=== PATIENT | female | born 1935 | race Caucasian/White ===

== ENCOUNTER → 2019-04-24 09:24 | Outpatient (BNVA) | payer MEDICARE, OTHER, SELFPAY | PROVIDERS: Family Provider Nurse Practitioner; PCP Nurse Practitioner; Visit Provider Nurse Practitioner | DX: E78.5 Hyperlipidemia, unspecified (principal); I10 Essential (primary) hypertension; E03.8 Other specified hypothyroidism; E55.9 Vitamin D deficiency, unspecified | CPT/HCPCS: 80053; 80061; 82306; 84443; 85025 ==

== ENCOUNTER → 2019-10-12 08:40 | Outpatient (BNVA) | payer MEDICARE, OTHER, SELFPAY | PROVIDERS: Family Provider Nurse Practitioner; PCP Nurse Practitioner; Visit Provider Nurse Practitioner | DX: I10 Essential (primary) hypertension (principal); E03.8 Other specified hypothyroidism; E78.2 Mixed hyperlipidemia | CPT/HCPCS: 80053; 80061; 81000; 84443 ==

== ENCOUNTER 2019-11-27 10:21 | Outpatient (CLI) | payer MEDICARE, OTHER, SELFPAY ==
--- NOTE | 2019-11-27 10:27 | MM_ITS ---
WS: [id number] Bilateral screening digital mammogram, 11/27/2019 Clinical Data: SCREENING Comparison: 10/20/2018, 10/04/2017, 10/02/2016, 09/22/2015, 09/21/2014, 09/10/2013, 08/14/2012, 07/11/2011, 04/27/2010, 04/20/2009, 03/05/2008, 01/31/2007, 11/08/2005. Findings: The breast parenchymal pattern shows fibroglandular tissue. No spiculated masses or clustered calcifi cations are seen. There are no secondary signs of carcinoma. There is a benign calcification in the c entral portion of the left wrist. MM/[id number] Impression: 1. Negative bilateral mammogram unchanged. 2. Recommend annual screening mammograms. BIRADS: 1-Negative FOLLOW UP: 1 Year Follow-up The CAD time checker was used.
== END 2019-11-27 10:22 | disposition home or self-care (01) ==
LOC: RADSHAW 10:26
PROVIDERS: PCP Nurse Practitioner; Visit Provider Nurse Practitioner
DX: Z12.31 Encounter for screening mammogram for malignant neoplasm of breast (principal)
CPT/HCPCS: 77067

== ENCOUNTER → 2020-04-22 09:35 | Outpatient (BNVA) | payer MEDICARE, OTHER, SELFPAY | PROVIDERS: PCP Nurse Practitioner; Visit Provider Nurse Practitioner | DX: E78.2 Mixed hyperlipidemia (principal); E03.8 Other specified hypothyroidism; E55.9 Vitamin D deficiency, unspecified | CPT/HCPCS: 80053; 80061; 82306; 84443 ==

== ENCOUNTER 2020-06-18 10:38 | Emergency (ER) | payer MEDICARE, OTHER, SELFPAY ==
[2020-06-18 11:06] VITALS: BP 190/96; PULSE 72; RESP 18; TEMP 36.8; O2SAT 96; BMI 19.8
[2020-06-18 11:12] VITALS: BP 199/92; PULSE 69; RESP 18; O2SAT 98
--- NOTE | 2020-06-18 11:15 | PC.NURSE ---
Pt given clean catch kit with instructions to call when needing to void. Call light in reach, no other needs.
--- NOTE | 2020-06-18 11:15 | W.ED.FEMALGU ---
HPI - Female Genitourinary General: Chief complaint: Urogenital-Female Stated complaint: ab pain, poss uti Time Seen by Provider: 06/18/20 11:06 Source: patient and family (Sister) Mode of arrival: ambulatory Limitations: no limitations History of Present Illness: HPI Narrative: Patient is an 85-year-old female with a history of hypertension and who presents to the emergency department with complaints of dysuria, urinary frequency, urinary urgency, that started about a week ago. She denies any flank pain. She denies hematuria. MD elicited complaint: dysuria and UTI Onset (ago): week(s) (1) Female Urogenital Radiation: Non-Radiating Quality of pain: burning Consistency: intermittent Vaginal discharge: none Vaginal bleeding: none Urinary symptoms: Dysuria, Frequency and Urgency Exacerbating factors: urination Relieving factors: none Associated symptoms: Reports abdominal pain and nausea; Deny short of breath, fevers/chills or headache(s) Treatment prior to arrival: none Sexual activity: No Patient : No Review of Systems General: Reports: 10 or more systems reviewed and unremarkable except in HPI and below GI: Reports: abdominal pain and nausea Neuro: Denies: headache(s) PFSH ED PFSH: Medical History (Reviewed 06/18/20 @ 11:24 by Carlos Eduardo Roa MD, [facility] [place]) Adult onset hypothyroidism Age-related osteoporosis without current pathological fracture History of mammogram 09/13/2014 Hyperlipidemia, unspecified Hypertension Vitamin D deficiency Surgical History History of appendectomy 1953 History of section History of cholecystectomy Open 1986 Family History (Reviewed 06/18/20 @ 11:24 by Carlos Eduardo Roa MD, [facility] [place]) Sister Cancer Mother CAD (coronary artery disease) Hypertension Father CAD (coronary artery disease) Diabetes Hypertension Social History (Reviewed 06/18/20 @ 11:24 by Carlos Eduardo Roa MD, [facility] [place]) Smoking and tobacco status: never smoked Second hand smoke exposure: No Smoking risk assessment/counseling performed?: No Alcohol intake: never Desire information about alcohol rehabilitation?: No Counseling given: No Desire information about substance/drug rehabilitation?: No Counseling given: No Adopted: No Caregiver/support person: No Lives independently: Yes Household members: none Housing: House Marital status: / Number of children: 1 service: No Current occupational status: retired History of recent travel: No Current gender identity: Female Physical Exam Const: COMMON NORMALS: no acute distress, average body habitus, patient oriented x3, no limitations, healthy appearing, alert and well nourished HENMT: COMMON NORMALS: normocephalic, atraumatic and moist oral mucous membranes HEAD & SCALP: normocephalic and atraumatic Neck/C-Spine: COMMON NORMALS: no JVD Resp: COMMON NORMALS: normal respiratory effort, No retractions, No use of accessory muscles, clear to auscultation bilaterally and percussion normal AUSCULTATION: clear to auscultation bilaterally PERCUSSION: percussion normal Cardio: COMMON NORMALS: no JVD, regular rate, regular rhythm, S1 normal heart sound present, S2 normal heart sound present, No gallops present (Cardio), No clicks present (Cardio), No murmurs present (Cardio), No rub (Cardio) and Peripheral pulses 2+ throughout RATE: regular rate RHYTHM: regular rhythm HEART SOUNDS: S1 normal heart sound present and S2 normal heart sound present PERIPHERAL PULSES: Peripheral pulses 2+ throughout GI: COMMON NORMALS: Normal to inspection, nondistended, normoactive bowel sounds present, Soft to palpation, non-tender, No hepatosplenomegaly present, no masses and no bruits PALPATION: Yes Soft to palpation and Yes No hepatosplenomegaly present : COMMON NORMALS: Yes no CVA tenderness BLADDER/KIDNEY EXAM: Yes no CVA tenderness Back/Pelvis: COMMON NORMALS: no CVA tenderness Neuro: COMMON NORMALS: patient oriented x3 SENSORIUM/ORIENTATION: Yes alert Course Reevaluation(s): Reevaluation #1: Discussed her urinalysis findings with her. Explained eyes negative for nitrites and leukocyte esterase but does have some blood and a few white blood cell counts. Because her symptoms are classic for UTI I will go ahead and treat her while we wait for the culture results. She voiced understanding and is in agreement with the plan. Time: 12:04 Vital Signs: Vital signs: Vital Signs Temperature 98.3 F 06/18/20 11:06 Pulse Rate 69 06/18/20 12:20 Respiratory Rate 15 06/18/20 12:20 Blood Pressure 179/86 06/18/20 12:20 Pulse Oximetry 98 06/18/20 12:20 MDM - Female MDM Narrative: Medical decision making narrative: 85-year-old female patient with symptoms typical for a urinary tract infection. Urinalysis was positive only for blood and some white blood cells. Negative leukocyte esterase or nitrite. However because of her symptoms with a few white blood cells and blood I will treat her for a urinary tract infection with a 3-day course of Bactrim. She was noted to be hypotensive throughout the ED stay although that is asymptomatic at this time. She takes medications for hypertension and she is advised to follow-up with her primary care provider for further evaluation of high blood pressure. Medical Records: Attestation: I reviewed the patient's medical records. Lab Data: Attestation: I reviewed the patient's lab results. Labs: Lab Results 06/18/20 Range/Units 11:27 Urine Color Straw (Yellow) Urine Appearance Clear (CLEAR) Urine pH 8 H (5-7) Ur Specific Gravit y 1.010 (1.005-1.030) Urine Protein Neg (Negative) Urine Glucose (UA) Norm (Normal) Urine Ketones Negative (Negative) Urine Blood 2+ H (Negative) Urine Nitrate Negative (Negative) Urine Bilirubin Neg (Negative) Prot Sulfosalicyli c Acd Negative (Negative) Urine Urobilinogen Norm (Negative) mg/dL Ur Leukocyte Tammie ase Negative (Negative) Urine RBC 5-10 H (0-2) /hpf Urine WBC 5-10 H (0-5) /hpf Ur Squamous Epith Cells 0-4 H (0-5) /hpf Amorphous Sediment Not Reportable Urine Bacteria Trace (NONE) /hpf Discharge Plan Discharge Patient Disposition: Home Clinical Impression: Urinary tract infection Qualifiers: Urinary tract infection type: acute cystitis Hematuria presence: with hematuria Qualified Code(s): N30.01 - Acute cystitis with hematuria Hypertension Qualifiers: Hypertension type: essential hypertension Qualified Code(s): I10 - Essential (primary) hypertension Condition: Stable Prescriptions: New Bactrim DS 800-160 mg tablet 1 tab PO BID Qty: 6 RF: 0 Continued atenolol 25 mg tablet 25 mg PO Q24H Qty: 90 RF: 0 atorvastatin 20 mg tablet 20 mg PO DAILY Qty: 90 RF: 0 isosorbide mononitrate 120 mg tablet extended release 24 hr 120 mg PO DAILY Qty: 90 RF: 0 levothyroxine 25 mcg tablet 25 mcg PO DAILY Qty: 90 RF: 0 lisinopril 10 mg tablet 10 mg PO DAILY Qty: 90 RF: 0 raloxifene 60 mg tablet 60 mg PO DAILY Qty: 90 RF: 1 Discharge Orders: Discharge ED (Routine); Ordered 06/18/20 Ordered By: Carlos Eduardo Roa Referrals: Tammy Palafox, [employer]PER[employer]ENT[employer] [Primary Care Provider] - 1-3 days Discharge Diet: Usual diet Discharge Activity: Increase activity as tolerated Patient Instructions: Urinary Tract Infection in Women (ED), Hypertension (ED) Activity Restrictions/Additional Instructions: Return for any new or worsening symptoms. Follow-up with your primary care provider within 3 days. Check your blood pressure once a day for the next few days until you see your primary care provider at which time medication adjustments can be made if needed. Take antibiotic as prescribed. Coding Level of Care Code ED Leather Softener for Sona Fwd Exam Detailed
[2020-06-18 11:54] LABS: Urine Appearance Clear (CLEAR); Urine Color Straw (Yellow); pH Urine 8 (5-7)
[2020-06-18 11:55] LABS: Add Urine Microscopic? YES; Bacteria Urine TRACE /hpf; Bilirubin Urine Neg (Negative); Blood Urine 2+ (Negative); Glucose Urine UA Norm (Normal); Ketones Urine Negative (Negative); Leukocyte Esterase Urine Negative (Negative); Nitrate Urine Negative (Negative); Protein Urine Neg (Negative); Squamous Epithelial Cell Urine 0-4 /hpf (0-5); Sulfosalicylic Acid Urine Negative (Negative); Urobilinogen Urine Norm (Negative)
[2020-06-18 11:56] LABS: Add Urine Culture? No
[2020-06-18 12:20] VITALS: BP 179/86; PULSE 69; RESP 15; O2SAT 98
== END 2020-06-18 12:20 | disposition home or self-care (01) ==
PROVIDERS: Emergency Provider Family Medicine; PCP Nurse Practitioner
DX: N30.01 Acute cystitis with hematuria (principal); I10 Essential (primary) hypertension; E78.5 Hyperlipidemia, unspecified
CPT/HCPCS: 81001; 99282

== ENCOUNTER → 2020-06-22 09:30 | Outpatient (BNVA) | payer MEDICARE, OTHER, SELFPAY | PROVIDERS: PCP Nurse Practitioner; Visit Provider Nurse Practitioner | DX: N30.01 Acute cystitis with hematuria (principal); I10 Essential (primary) hypertension; E03.8 Other specified hypothyroidism | CPT/HCPCS: 80053; 81000; 84443; 85025 ==

== ENCOUNTER → 2020-06-27 13:50 | Outpatient (BNVA) | payer MEDICARE, OTHER, SELFPAY | PROVIDERS: PCP Nurse Practitioner; Visit Provider Nurse Practitioner | DX: M25.531 Pain in right wrist (principal) | CPT/HCPCS: 73110 ==

== ENCOUNTER 2020-06-27 18:40 | Emergency (ER) | payer MEDICARE, OTHER, SELFPAY ==
[2020-06-27 19:24] VITALS: BP 161/76; PULSE 68; RESP 19; TEMP 36.7; O2SAT 98; BMI 23.2
--- NOTE | 2020-06-27 20:26 | W.ED.EXTPRO ---
HPI - Extremity Problem General: Chief complaint: Extremity Injury, Upper Stated complaint: swollen hand,rings stuck on finger Time Seen by Provider: 06/27/20 20:21 History of Present Illness: HPI Narrative: Patient is an 85-year-old male comes to the ED to get rings removed off of fourth digit on right hand. Patient had a fall today and was seen at [facility] and diagnosed with a broken wrist and was put in a splint and arm sling. Patient right fourth digit started swelling up and her rings were stuck. She came here to get her rings removed. Associated symptoms: Deny chest pain, fever(s) or rash Review of Systems Const: Denies: fever(s), chills or fatigue Eyes: Denies: change in vision or eye discomfort ENMT: Denies: throat pain, odynophagia, nasal discharge or nasal congestion Card: Denies: chest pain, palpitations, edema, swelling of feet/ankles, dyspnea on exertion or orthopnea Resp: Denies: dyspnea, productive cough or non-productive cough GI: Denies: abdominal pain, nausea, vomiting, diarrhea, constipation or hematochezia : Denies: flank pain, dysuria or hematuria Musc: Reports: other (Patient springs on right fourth digit are stuck due to finger swelling.); Denies: neck pain, back pain or extremity swelling Skin/Breast: Denies: rash or new lesions Neuro: Denies: headache(s), numbness in extremities or weakness in extremities [facility] ED PFSH: Medical History Adult onset hypothyroidism Age-related osteoporosis without current pathological fracture History of mammogram 09/13/2014 Hyperlipidemia, unspecified Hypertension Vitamin D deficiency Surgical History History of appendectomy 1953 History of section History of cholecystectomy Open 1986 Family History Sister Cancer Mother CAD (coronary artery disease) Hypertension Father CAD (coronary artery disease) Diabetes Hypertension Social History Smoking and tobacco status: never smoked Second hand smoke exposure: No Smoking risk assessment/counseling performed?: No Alcohol intake: never Desire information about alcohol rehabilitation?: No Counseling given: No Desire information about substance/drug rehabilitation?: No Counseling given: No Adopted: No Caregiver/support person: No Lives independently: Yes Household members: none Housing: House Marital status: / Number of children: 1 service: No Current occupational status: retired History of recent travel: No Current gender identity: Female Physical Exam Const: COMMON NORMALS: no acute distress, patient oriented x3 and alert GENERAL APPEARANCE: cooperative and comfortable HENMT: COMMON NORMALS: normocephalic HEAD & SCALP: normocephalic MOUTH: Normal oral and palatal mucosa present THROAT: posterior oropharynx normal and uvula midline Neck/C-Spine: COMMON NORMALS: supple GENERAL: Yes normal visual inspection Resp: COMMON NORMALS: normal respiratory effort, No retractions, No use of accessory muscles and clear to auscultation bilaterally AUSCULTATION: clear to auscultation bilaterally Cardio: COMMON NORMALS: regular rate, regular rhythm, S1 normal heart sound present, S2 normal heart sound present, No gallops present (Cardio), No clicks present (Cardio), No murmurs present (Cardio) and Peripheral pulses 2+ throughout RATE: regular rate RHYTHM: regular rhythm HEART SOUNDS: S1 normal heart sound present and S2 normal heart sound present PERIPHERAL PULSES: Peripheral pulses 2+ throughout GI: COMMON NORMALS: Normal to inspection, nondistended, normoactive bowel sounds present, Soft to palpation, non-tender and no masses PALPATION: Yes Soft to palpation : COMMON NORMALS: Yes no CVA tenderness BLADDER/KIDNEY EXAM: Yes no CVA tenderness Back/Pelvis: COMMON NORMALS: no CVA tenderness Extremity: NARRATIVE EXTREMITY EXAM: Patient has some ecchymosis and swelling in her right hand and fingers and is also currently wearing a right wrist splint. She has 2 rings on her right hand fourth digit and cannot physically be slid off. No signs of decreased blood flow to the distal end of right hand fourth digit. Neuro: COMMON NORMALS: patient oriented x3 and moves all extremities SENSORIUM/ORIENTATION: Yes alert Skin: GENERAL SKIN EXAM: dry skin Course ED course: I was able to remove 2 rings off of fourth digit of right hand using some ring cutters here on the unit. Patient had no signs of restriction of blood flow to the distal end of fourth digit before and after ring removal. Vital Signs: Vital signs: Vital Signs Temperature 98.1 F 06/27/20 19:24 Pulse Rate 68 06/27/20 19:24 Respiratory Rate 19 H 06/27/20 19:24 Blood Pressure 161/76 06/27/20 19:24 Pulse Oximetry 98 06/27/20 19:24 MDM - Extremity (Nontraumatic) MDM Narrative: Medical decision making narrative: Patient is a 5-year-old female who came to the ED to have 2 rings removed from fourth digit due to finger swelling. I was able to use ring cutters to remove rings. Patient had no signs of any blood flow restriction before or after ring removal. Patient discharged and told to follow-up with her PCP as previously scheduled. Discharge Plan Discharge Patient Disposition: Home Clinical Impression: External constriction of finger Qualifiers: Encounter type: initial encounter Qualified Code(s): S60.449A - External constriction of unspecified finger, initial encounter Condition: Stable Prescriptions: No Action raloxifene 60 mg tablet 60 mg PO DAILY Qty: 90 RF: 1 levothyroxine 25 mcg tablet 25 mcg PO DAILY Qty: 90 RF: 0 isosorbide mononitrate 120 mg tablet extended release 24 hr 120 mg PO DAILY Qty: 90 RF: 0 atorvastatin 20 mg tablet 20 mg PO DAILY Qty: 90 RF: 0 atenolol 25 mg tablet 25 mg PO Q24H Qty: 90 RF: 0 lisinopril 10 mg tablet 10 mg PO DAILY Qty: 90 RF: 0 acetaminophen-codeine 300-30 mg tablet 1 tab PO Q4H PRN (Reason: pain) 5 Days Qty: 30 RF: 0 Bactrim DS 800-160 mg tablet 1 tab PO BID Qty: 6 RF: 0 Discharge Orders: Discharge ED (Routine); Ordered 06/27/20 Ordered By: Clarence Johansen Referrals: Tammy Palafox, [employer] INST[employer]ER[employer] [Primary Care Provider] - Discharge Diet: Regular Discharge Activity: Limit activity as instructed Activity Restrictions/Additional Instructions: Follow-up with medical provider as directed. Continue taking all previously prescribed medications as directed. Return to the ER or your medical provider if condition worsens. Please read and understand discharge instructions. Thank you for choosing [facility] for your healthcare needs today. Please realize this is an emergency room and that we are providing you with a medical screening exam and this may not be complete and all inclusive of all the testing and or work up that you may need to determine your ailment or severity of your illness. It is very important that you follow up as instructed or that you return to the Emergency Department should you have concerns or if your condition changes or worsens in any way. Coding Level of Care Code ED Cable Assembler for Sona Herrera Exam Comprehensive
== END 2020-06-27 20:47 | disposition home or self-care (01) ==
PROVIDERS: Emergency Provider Physician Assistant; PCP Nurse Practitioner
DX: S60.444A External constriction of right ring finger, initial encounter (principal); W49.04XA Ring or other jewelry causing external constriction, initial encounter; E78.5 Hyperlipidemia, unspecified; I10 Essential (primary) hypertension
CPT/HCPCS: 99281

== ENCOUNTER 2020-06-30 13:38 | Outpatient (CLI) | payer MEDICARE, OTHER, SELFPAY | END 2020-06-30 13:39 | disposition home or self-care (01) | LOC: SPT 13:39 | PROVIDERS: PCP Nurse Practitioner; Visit Provider Orthopaedic Surgery | DX: Z46.89 Encounter for fitting and adjustment of other specified devices (principal); S52.591D Other fractures of lower end of right radius, subsequent encounter for closed fracture with routine healing; X58.XXXD Exposure to other specified factors, subsequent encounter | CPT/HCPCS: 87635; L3908 ==

== ENCOUNTER 2020-07-01 12:32 | Day surgery (SDC) | payer MEDICARE, OTHER, SELFPAY ==
[2020-06-30 15:29] VITALS: BMI 19.8
[2020-07-01] VITALS (14 sets, daily range): BP systolic 154–179; BP diastolic 71–107; PULSE 67–88; RESP 16–22; TEMP 36.1–36.6; O2SAT 92–98
--- NOTE | 2020-07-01 | SCC_ITS ---
Procedure Done: ORIF right Disatal radius 34.7 seconds of fluoroscopic guidance, for a cumulative dose of 1.21 mGy, was provided to Dr. Mccracken by the radiology department. C-arm images of the RIGHT wrist were saved for the patient's permanent record. [facility]INE HOSPITALShahla
[2020-07-01] MEDS: sodium chloride 0.9% 1,000 ML 30 ML IV (13:10)
--- NOTE | 2020-07-01 14:44 | ANES.PREANE2 ---
Pre-Anesthetic Assessment Pre-Anesthetic Assessment: Height/Weight: Height 1.66 m Weight 54.885 kg Temp Pulse Resp BP Pulse Ox 97.1 F L 67 18 171/90 97 07/01/20 12:51 07/01/20 12:51 07/01/20 12:51 07/01/20 12:51 07/01/20 12:51 Preop Diagnosis: right distal radius fracture Proposed Procedure: Operation Date: 07/01/20 14:20 Proposed Procedures p ORIF Wrist 42112 S52.501A(Right) - Rc Mccracken, DO Was Beta Aracelis taken within 24 hours: Yes Was Clonidine taken within 24 hours: N/A Last intake: Intake Last Liquid Date 06/30/20 Last Liquid Time 18:00 Last Solid Date 06/30/20 Last Solid Time 18:00 Social: Social History: No alcohol and No tobacco Exam: Pre-Anes Outpt Exam: alert, oriented x 3, clear to auscultation bilaterally and regular rate & rhythm Airway: Submandibular: WNL Cervical ROM: WNL MP: 2 Dentition: False CV/HEM: CV/HEM: HTN Metabolic: Metabolic: Thyroid Anesthetic Plan: ASA status: 3 Anesthesia: General Risk of > 500 ml blood loss (7ml/kg in children): No Meds/Allergies Current Medications: Current Medications Generic Name Dose Route Start Last Admin Trade Name Freq PRN Reason Stop Dose Admin Sodium Chloride 1,000 mls @ 30 ml s/hr 07/01/20 12:45 07/01/20 13:10 Sodium Chloride 0.9% IV 07/02/20 12:44 30 mls/hr .Q24H TIANA Administration PFSH Anesthesia PFSH: Medical History Adult onset hypothyroidism Age-related osteoporosis without current pathological fracture History of mammogram 09/13/2014 Hyperlipidemia, unspecified Hypertension Vitamin D deficiency Surgical History History of appendectomy 1953 History of section History of cholecystectomy Open 1986 Family History Sister Cancer Mother CAD (coronary artery disease) Hypertension Father CAD (coronary artery disease) Diabetes Hypertension Social History Smoking and tobacco status: never smoked Second hand smoke exposure: No Smoking risk assessment/counseling performed?: No Alcohol intake: never Desire information about alcohol rehabilitation?: No Counseling given: No Desire information about substance/drug rehabilitation?: No Counseling given: No Adopted: No Caregiver/support person: No Lives independently: Yes Household members: none Housing: House Marital status: / Number of children: 1 service: No Current occupational status: retired History of recent travel: No Current gender identity: Female Data Anesthesia Cardiac Studies: No Data to Display
[2020-07-01] MEDS: acetaminophen 325 mg Tablet PO (15:08)
--- NOTE | 2020-07-01 16:05 | W.PM.OPSUD ---
Surgery/Procedure H&P Update DATE OF PROCEDURE: July 01, 2020 DATE H&P PERFORMED: 06/30/20 H&P UPDATE INFORMATION: I have reviewed H&P completed within last 30 days, I have examined patient prior to procedure and No changes to prior documentation PREOP DIAGNOSIS: right distal radius fracture PLANNED PROCEDURE: Operation Date: 07/01/20 14:20 Proposed Procedures p ORIF Wrist 50078 S52.501A(Right) - Rc Mccracken DO
[2020-07-01] MEDS: clindamycin 600 MG/50 ML PREMIX 100 MG IV (16:35)
--- NOTE | 2020-07-01 17:26 | XR_ITS ---
WS: [id number] C-ARM RADIOGRAPHS RIGHT WRIST; 3 IMAGES HISTORY: RT. DISTAL RADIUS FX COMPARISON: 06/27/2020 Intraoperative imaging during plate and screw fixation distal radial fracture which has been reduced. Fracture in good position alignment. XR/XR wrist RT 2V [id number] IMPRESSION: Intraoperative imaging during fixation distal radial fracture in good alignment .
[2020-07-01] MEDS: fentaNYL 50 mcg/mL INJ 2mL IVP ×2 (17:46→17:53)
[2020-07-01] MEDS: HYDROmorphone 1 mg/mL INJ 1 mL 0.25 MG IVP (17:58)
--- NOTE | 2020-07-01 18:15 | ANES.PROC ---
Anesthesia Procedures Procedure/Date: 07/01/20 Nerve Block ^: Nerve Block 1: Main Anesthesia: general anesthesia Time Out Performed: Yes Consent: requested by attending/covering physician, from patient, risks and benefits reviewed and patient agrees to proceed Nerve block location: interscalene (right) Anesthesia monitors applied: pulse oximetry, EKG, BP cuff and oxygen Nerve block position: supine Anesthetic Used: ropivicaine 0.5% Amount of anesthesia used (mL): 20 Ultrasound used to: recognize landmarks Nerve Stimulator Used?: No Interscalene/Femoral BLK: 2 stimuplex 22 g needle used for position and inplane approach and visualize local anesthetic spread Injection: neg aspiration of heme Patient Tolerated Procedure: well Complications: none
--- NOTE | 2020-07-01 18:16 | ANE.PACU2 ---
Inpatient post-anesthesia follow up: Airway intact: Yes Vital signs: Temperature 97.8 F Pulse Rate 87 Respiratory Rate 20 Blood Pressure 165/86 Pulse Oximetry 93 Oxygen Delivery Me thod Room Air Oxygen Flow Rate Fraction of Inspir ed Oxygen Hydration adequate: Yes Nausea and vomiting: No Pain level: 2 Mental status: Baseline Additional Comments: Difficult pain control, placed IS nerve blk.
--- NOTE | 2020-07-01 18:17 | PM.OP ---
Operative Report Date of procedure: July 01, 2020 Pre-op Diagnosis: right distal radius fracture Post-op diagnosis: same Procedure Done: ORIF right Disatal radius Procedure: ORIF right Disatal radius extra articular Patient is brought to the operative suite placed in the supine position all areas impingement well-padded. Patient was then prepped and draped normal sterile fashion. Skin was made over the volar aspect of the wrist. The FCR and radial artery were identified. The pronator quadratus was reflected ulnarly. The fracture was identified the fracture was extra-articular. The fracture was reduced 3 screws were placed distally into the plate and then 2 screws were placed proximally and then a 4 screws placed up into the radial styloid. AP and lateral fluoroscopy ensured that the fracture and hardware in proper position. Wounds were irrigated and closed with Vicryl and nylon suture. A volar splint was placed. And patient was transferred to the PACU in stable condition.
== END 2020-07-01 19:08 | disposition home or self-care (01) ==
PROVIDERS: PCP Nurse Practitioner; Visit Provider Orthopaedic Surgery
PROC: (CPT 25607; principal; 2020-07-01 14:00)
DX: S52.551A Other extraarticular fracture of lower end of right radius, initial encounter for closed fracture (principal); X58.XXXA Exposure to other specified factors, initial encounter; I10 Essential (primary) hypertension; E03.9 Hypothyroidism, unspecified; M81.0 Age-related osteoporosis without current pathological fracture; E78.5 Hyperlipidemia, unspecified; E55.9 Vitamin D deficiency, unspecified
CPT/HCPCS: 25607; 64415; 73100; 76000; 76942; C1713; J1170; J2405; J2704; J2795; J3010; J3490; J7030

== ENCOUNTER 2020-07-14 11:56 | Outpatient (CLI) | payer MEDICARE, OTHER, SELFPAY | END 2020-07-14 11:57 | disposition home or self-care (01) | LOC: SPT 11:56 | PROVIDERS: PCP Nurse Practitioner; Visit Provider Orthopaedic Surgery | DX: Z46.89 Encounter for fitting and adjustment of other specified devices (principal); S52.591D Other fractures of lower end of right radius, subsequent encounter for closed fracture with routine healing; X58.XXXD Exposure to other specified factors, subsequent encounter | CPT/HCPCS: 97760; L3982 ==

== ENCOUNTER → 2020-08-11 10:25 | Outpatient (BNVA) | payer MEDICARE, OTHER, SELFPAY | PROVIDERS: PCP Nurse Practitioner; Visit Provider Orthopaedic Surgery | DX: Z48.89 Encounter for other specified surgical aftercare (principal); S52.501A Unspecified fracture of the lower end of right radius, initial encounter for closed fracture | CPT/HCPCS: 73110 ==

== ENCOUNTER 2020-08-17 12:04 | Outpatient (RCR) | payer MEDICARE, OTHER, SELFPAY | END 2020-08-24 23:59 | disposition home or self-care (01) | LOC: SOT 12:04 | PROVIDERS: PCP Nurse Practitioner; Referring Provider Orthopaedic Surgery; Visit Provider Orthopaedic Surgery | DX: S52.501A Unspecified fracture of the lower end of right radius, initial encounter for closed fracture (principal); X58.XXXA Exposure to other specified factors, initial encounter | CPT/HCPCS: 97110; 97140; 97165 ==

== ENCOUNTER 2020-08-25 06:00 | Outpatient (RCR) | payer MEDICARE, OTHER, SELFPAY | END 2020-09-24 23:59 | disposition home or self-care (01) | LOC: SOT 06:00 | PROVIDERS: PCP Nurse Practitioner; Referring Provider Orthopaedic Surgery; Visit Provider Orthopaedic Surgery | DX: S52.501D Unspecified fracture of the lower end of right radius, subsequent encounter for closed fracture with routine healing (principal); X58.XXXD Exposure to other specified factors, subsequent encounter | CPT/HCPCS: 97018; 97110; 97140; 97168 ==

== ENCOUNTER → 2020-09-22 10:06 | Outpatient (BNVA) | payer MEDICARE, OTHER, SELFPAY | PROVIDERS: PCP Nurse Practitioner; Visit Provider Orthopaedic Surgery | DX: Z48.89 Encounter for other specified surgical aftercare (principal); S52.501A Unspecified fracture of the lower end of right radius, initial encounter for closed fracture; S62.101A Fracture of unspecified carpal bone, right wrist, initial encounter for closed fracture; Z98.890 Other specified postprocedural states; X58.XXXA Exposure to other specified factors, initial encounter | CPT/HCPCS: 73110 ==

== ENCOUNTER 2020-09-25 06:00 | Outpatient (RCR) | payer MEDICARE, OTHER, SELFPAY | END 2020-10-25 23:59 | disposition home or self-care (01) | LOC: SOT 06:00 | PROVIDERS: PCP Nurse Practitioner; Referring Provider Orthopaedic Surgery; Visit Provider Orthopaedic Surgery | DX: S52.501D Unspecified fracture of the lower end of right radius, subsequent encounter for closed fracture with routine healing (principal); X58.XXXD Exposure to other specified factors, subsequent encounter | CPT/HCPCS: 97168 ==

== ENCOUNTER → 2020-10-27 08:40 | Outpatient (BNVA) | payer MEDICARE, OTHER, SELFPAY | PROVIDERS: PCP Nurse Practitioner; Visit Provider Nurse Practitioner | DX: I10 Essential (primary) hypertension (principal); E78.2 Mixed hyperlipidemia; E03.8 Other specified hypothyroidism; M81.0 Age-related osteoporosis without current pathological fracture; F41.8 Other specified anxiety disorders; E55.9 Vitamin D deficiency, unspecified | CPT/HCPCS: 80053; 80061; 82306; 84443 ==

== ENCOUNTER 2021-01-23 10:54 | Outpatient (CLI) | payer MEDICARE, OTHER, SELFPAY ==
--- NOTE | 2021-01-23 10:57 | MM_ITS ---
WS: [id number] BILATERAL DIGITAL SCREENING MAMMOGRAPHY WITH CAD CLINICAL INFORMATION: SCREENING HISTORY: Screening mammogram. No current complaints. COMPARISON: November 27, 2019 TECHNIQUE: Bilateral CC and MLO views. FINDINGS: Scattered fibroglandular densities bilaterally. Stable dystrophic calcification left breast. A few ti ny punctate calcifications right breast. Stable clustered calcifications left breast. No suspicious f ocal mass, asymmetry, calcifications, or architectural distortion. No evidence of malignancy. MM/[id number] IMPRESSION: BI-RADS: 2-Benign FOLLOW UP: 1 Year Follow-up Recommend return to annual screening mammography.
== END 2021-01-23 10:55 | disposition home or self-care (01) ==
LOC: RADSHAW 10:55
PROVIDERS: PCP Nurse Practitioner; Visit Provider Nurse Practitioner
DX: Z12.31 Encounter for screening mammogram for malignant neoplasm of breast (principal)
CPT/HCPCS: 77067

== ENCOUNTER → 2021-04-28 08:20 | Outpatient (BNVA) | payer MEDICARE, OTHER, SELFPAY | PROVIDERS: PCP Nurse Practitioner; Visit Provider Nurse Practitioner | DX: E55.9 Vitamin D deficiency, unspecified (principal); E03.8 Other specified hypothyroidism; I10 Essential (primary) hypertension | CPT/HCPCS: 80053; 80061; 82306; 84443 ==

== ENCOUNTER → 2021-07-21 08:49 | Outpatient (BNVA) | payer MEDICARE, OTHER, SELFPAY | PROVIDERS: PCP Nurse Practitioner; Visit Provider Nurse Practitioner | DX: E03.8 Other specified hypothyroidism (principal); R74.01 Elevation of levels of liver transaminase levels; I10 Essential (primary) hypertension; R53.83 Other fatigue | CPT/HCPCS: 80053; 81000; 84443; 86705; 86706; 86709; 86803; 87340 ==

== ENCOUNTER 2021-10-03 07:06 | Outpatient (CLI) | payer MEDICARE, OTHER, SELFPAY ==
--- NOTE | 2021-10-03 07:15 | US_ITS ---
WS: [id number] Complete ABDOMINAL ULTRASOUND HISTORY: R74.8 - Abnormal levels of other serum enzymes COMPARISON: None available. Liver: 12.6 cm in length. Liver is normal size and echogenicity with no mass or intrahepatic dilatati on. Portal Vein: Normal hepatopetal flow with monophasic waveform. Gallbladder: Prior cholecystectomy. Pancreas: Normal size and echogenicity. CBD: 1.0 cm. Right kidney: 10.3 cm x 4.9 cm x 4.8 cm. Normal size kidney with increased echogenicity and a lobula lillie cortex. No mass. Left kidney: 9.7 cm x 3.7 cm x 4.5 cm. Small caliber kidney with increased echogenicity. Mild diffus e cortical thinning and lobulation. No mass identified. Increased renal sinus fat. Spleen: Normal size and echogenicity. Abdominal aorta and IVC are within normal limits. No ascites. US/US abdomen complete* [id number] IMPRESSION: 1. Prior cholecystectomy. 2. Bilateral mild to moderate chronic medical renal disease, greatest involvin g the LEFT kidney. No solid mass. 3. Negative liver.
== END 2021-10-03 07:07 | disposition home or self-care (01) ==
LOC: RAD 07:07
PROVIDERS: PCP Nurse Practitioner; Visit Provider Nurse Practitioner
DX: R74.8 Abnormal levels of other serum enzymes (principal); Z90.49 Acquired absence of other specified parts of digestive tract; N18.30 Chronic kidney disease, stage 3 unspecified
CPT/HCPCS: 76700

== ENCOUNTER → 2021-10-11 08:04 | Outpatient (BNVA) | payer MEDICARE, OTHER, SELFPAY | PROVIDERS: PCP Nurse Practitioner; Visit Provider Nurse Practitioner | DX: E55.9 Vitamin D deficiency, unspecified (principal); E03.8 Other specified hypothyroidism; I10 Essential (primary) hypertension | CPT/HCPCS: 80053; 80061; 82306; 84443 ==

== ENCOUNTER → 2022-01-03 08:03 | Outpatient (BNVA) | payer MEDICARE, OTHER, SELFPAY | PROVIDERS: PCP Nurse Practitioner; Visit Provider Nurse Practitioner | DX: E03.8 Other specified hypothyroidism (principal); E78.2 Mixed hyperlipidemia | CPT/HCPCS: 80053; 80061; 84443 ==

== ENCOUNTER 2022-02-12 14:00 | Outpatient (CLI) | payer MEDICARE, OTHER, SELFPAY ==
--- NOTE | 2022-02-12 14:17 | MM_ITS ---
WS: [id number] VIEWS: MLO and CC views both breasts. 3D digital tomosynthesis is also included in this exam. Comparison made with prior exam of 09/22/2015, 10/02/2016, 10/04/2017, 10/20/2018, 11/27/2019, 01/23/2021.. Findings: There was no sign of mass, architectural distortion or suspicious calcification in either breast. He terogeneously dense MM/[id number] Impression: BI-RADS: 2-Benign FOLLOW-UP: 1 Year Follow-up This mammogram was also analyzed by the Computer Aided Detection System R2 Imag e Clinical Application Manager.
== END 2022-02-12 14:01 | disposition home or self-care (01) ==
LOC: RAD 14:03
PROVIDERS: PCP Nurse Practitioner; Visit Provider Nurse Practitioner
DX: Z12.31 Encounter for screening mammogram for malignant neoplasm of breast (principal)
CPT/HCPCS: 77063; 77067

== ENCOUNTER → 2022-04-06 10:35 | Outpatient (BNVA) | payer MEDICARE, OTHER, SELFPAY | PROVIDERS: PCP Nurse Practitioner; Visit Provider Nurse Practitioner | DX: E03.8 Other specified hypothyroidism (principal); I10 Essential (primary) hypertension; E78.2 Mixed hyperlipidemia; F41.8 Other specified anxiety disorders; M81.0 Age-related osteoporosis without current pathological fracture | CPT/HCPCS: 80053; 84443 ==

== ENCOUNTER → 2022-06-27 08:04 | Outpatient (BNVA) | payer MEDICARE, OTHER, SELFPAY | PROVIDERS: PCP Nurse Practitioner; Visit Provider Nurse Practitioner | DX: E55.9 Vitamin D deficiency, unspecified (principal); E03.8 Other specified hypothyroidism; F41.8 Other specified anxiety disorders; E78.2 Mixed hyperlipidemia | CPT/HCPCS: 80053; 80061; 82306; 84443 ==

== ENCOUNTER → 2022-11-29 09:16 | Outpatient (BNVA) | payer MEDICARE, OTHER, SELFPAY | PROVIDERS: PCP Nurse Practitioner; Visit Provider Nurse Practitioner | DX: E03.8 Other specified hypothyroidism (principal); F41.8 Other specified anxiety disorders; I10 Essential (primary) hypertension; E78.2 Mixed hyperlipidemia; M81.0 Age-related osteoporosis without current pathological fracture; E78.5 Hyperlipidemia, unspecified | CPT/HCPCS: 80053; 84443 ==

== ENCOUNTER → 2023-02-14 11:26 | Outpatient (BNVA) | payer MEDICARE, OTHER, SELFPAY | PROVIDERS: PCP Nurse Practitioner; Visit Provider Nurse Practitioner | DX: M14.60 Charcot's joint, unspecified site (principal); E78.5 Hyperlipidemia, unspecified; E03.8 Other specified hypothyroidism; E55.9 Vitamin D deficiency, unspecified; L30.9 Dermatitis, unspecified | CPT/HCPCS: 80053; 82306; 82607; 84439; 84443; 84481; 85025 ==

== ENCOUNTER 2023-02-27 09:03 | Outpatient (CLI) | payer MEDICARE, OTHER, SELFPAY ==
--- NOTE | 2023-02-27 09:30 | USCV_ITS ---
Elizabeth Cheung Age: 88 Gender: F : 1935 Exam Date: 02/27/2023 09:18 Ordering Phys: Tammy Palafox Technologist: BRITTANY [place]am [place] [facility] [place]: MURMUR BP: 138 / 62 HR: 64 Rhythm: Sinus Technical Quality: Adequate MEASUREMENTS (Male / Female) Normal Values 2D ECHO LVOT Diameter 1.9 cm LV Ejection Fraction MOD 2C 74.2 % LV Ejection Fraction 2C AL 76.6 % LA Diameter 3.4 cm LA Width 3.9 cm LA Height 4.9 cm RA Width 4.6 cm RA Height 5.4 cm Aorta at Sinotubular Diameter 2.1 cm IVC Diameter 1.7 cm M-MODE Aortic Annulus Diameter 2.3 cm LA Ao Ratio MM 1.5 MV E Point Septal Separation 0.6 cm DOPPLER AV Peak Velocity 214.0 cm/s LVOT Peak Velocity 113.0 cm/s AV Area Cont Eq vti 1.5 cm squared AV Area Cont Eq pk 1.5 cm squared MV Peak Velocity 119.0 cm/s MV Area PHT 2.7 cm squared Mitral E to A Ratio 0.8 MV E' Velocity 52.0 cm/s Mitral E to MV E' Ratio 11.0 Mitral E to LV E' Lateral Ratio 12.3 Mitral E to LV E' Septal Ratio 10.0 TR Peak Velocity 300.1 cm/s TR Peak Gradient 36.0 mmHg TR Mean Velocity 245.2 cm/s TR Mean Gradient 25.6 mmHg TR Velocity Time Integral 106.1 cm TV Peak E Velocity 64.0 cm/s Right Atrial Pressure 3.0 mmHg Pulmonary Artery Systolic Pressu 39.0 mmHg PV Peak Velocity 111.0 cm/s RV Acceleration Time 0.1 s RV Ejection Time 0.3 s RV AcT/ET 0.3 FINDINGS Left Ventricle Left ventricle is normal in size. LV systolic function is normal with EF 55 to 60%. No regional wall motion abnormalities are seen. Grade 1 diastolic dysfunction Right Ventricle Normal in size and function Right Atrium Dilated Left Atrium Dilated Mitral Valve Moderate mitral annular calcification seen. Mild mitral regurgitation. Aortic Valve Aortic valve is thickened. Mild aortic regurgitation. Mild aortic stenosis with aortic valve area of 1.51 cm squared and mean gradient of 10.4 mmHg. Tricuspid Valve Moderate tricuspid regurgitation. RVSP is 35 to 40 mmHg. This is consistent with mild pulmonary hypertension. Pulmonic Valve Not well-visualized Pericardium Normal Aorta Normal in size IVC Appears to be normal CONCLUSIONS LV systolic function is normal with EF of 55 to 60%. Grade 1 diastolic dysfunction. Biatrial enlargement Mild mitral regurgitation Mild aortic regurgitation Mild aortic stenosis Moderate tricuspid regurgitation Mild pulmonary hypertension Compared to prior echocardiogram from 2013, no significant changes are seen Felipe Salguero MD (Electronically Signed) Final Date: 02 March 2023 15:32 S
== END 2023-02-27 09:04 | disposition home or self-care (01) ==
PROVIDERS: PCP Nurse Practitioner; Visit Provider Nurse Practitioner
DX: R01.1 Cardiac murmur, unspecified (principal); I08.3 Combined rheumatic disorders of mitral, aortic and tricuspid valves; I27.20 Pulmonary hypertension, unspecified
CPT/HCPCS: 93306

== ENCOUNTER → 2023-03-06 15:03 | Outpatient (BNVA) | payer MEDICARE, OTHER, SELFPAY | PROVIDERS: PCP Nurse Practitioner; Visit Provider Nurse Practitioner | DX: I50.30 Unspecified diastolic (congestive) heart failure (principal); I10 Essential (primary) hypertension | CPT/HCPCS: 83880 ==

== ENCOUNTER → 2023-04-11 11:52 | Outpatient (BNVA) | payer MEDICARE, OTHER, SELFPAY | PROVIDERS: PCP Nurse Practitioner; Visit Provider Nurse Practitioner | DX: M25.522 Pain in left elbow (principal) | CPT/HCPCS: 73080 ==

== ENCOUNTER → 2023-06-13 08:44 | Outpatient (BNVA) | payer MEDICARE, OTHER, SELFPAY | PROVIDERS: PCP Nurse Practitioner; Visit Provider Nurse Practitioner | DX: I50.32 Chronic diastolic (congestive) heart failure (principal); I10 Essential (primary) hypertension | CPT/HCPCS: 80048; 83880; 85025 ==

== ENCOUNTER → 2023-07-04 08:29 | Outpatient (BNVA) | payer MEDICARE, OTHER, SELFPAY | PROVIDERS: PCP Nurse Practitioner; Visit Provider Nurse Practitioner | DX: I10 Essential (primary) hypertension (principal); E78.2 Mixed hyperlipidemia; E03.8 Other specified hypothyroidism; E55.9 Vitamin D deficiency, unspecified; Z79.899 Other long term (current) drug therapy | CPT/HCPCS: 80053; 80061; 82607; 84443; 85025 ==

== ENCOUNTER → 2023-12-09 09:52 | Outpatient (BNVA) | payer MEDICARE, OTHER, SELFPAY | PROVIDERS: PCP Nurse Practitioner; Visit Provider Nurse Practitioner | DX: I10 Essential (primary) hypertension (principal); E78.2 Mixed hyperlipidemia; E03.8 Other specified hypothyroidism; E55.9 Vitamin D deficiency, unspecified | CPT/HCPCS: 80053; 80061; 82306; 82607; 84443; 85025 ==

== ENCOUNTER → 2024-05-04 09:14 | Outpatient (BNVA) | payer MEDICARE, OTHER, SELFPAY | PROVIDERS: PCP Nurse Practitioner; Visit Provider Nurse Practitioner | DX: I10 Essential (primary) hypertension (principal); E78.2 Mixed hyperlipidemia; F41.8 Other specified anxiety disorders; E03.8 Other specified hypothyroidism; M81.0 Age-related osteoporosis without current pathological fracture; I50.30 Unspecified diastolic (congestive) heart failure; M19.90 Unspecified osteoarthritis, unspecified site; I50.32 Chronic diastolic (congestive) heart failure; M19.022 Primary osteoarthritis, left elbow | CPT/HCPCS: 80053; 80061; 84443 ==

== ENCOUNTER → 2024-10-19 09:52 | Outpatient (BNVA) | payer MEDICARE, OTHER, SELFPAY | PROVIDERS: PCP Nurse Practitioner; Visit Provider Nurse Practitioner | DX: I10 Essential (primary) hypertension (principal); D64.9 Anemia, unspecified; E78.2 Mixed hyperlipidemia; E03.8 Other specified hypothyroidism | CPT/HCPCS: 80053; 80061; 82607; 82728; 83550; 84443; 85025 ==

== ENCOUNTER → 2024-10-22 09:41 | Outpatient (BNVA) | payer MEDICARE, OTHER, SELFPAY | PROVIDERS: PCP Nurse Practitioner; Visit Provider Nurse Practitioner | DX: D64.9 Anemia, unspecified (principal) | CPT/HCPCS: 82274 ==

== ENCOUNTER → 2025-01-11 09:46 | Outpatient (BNVA) | payer MEDICARE, OTHER, SELFPAY | PROVIDERS: PCP Nurse Practitioner; Visit Provider Nurse Practitioner | DX: E03.8 Other specified hypothyroidism (principal) | CPT/HCPCS: 80053; 84443; 85025 ==